=== PATIENT | female | born 1975 | race Caucasian/White ===

== ENCOUNTER 2019-03-31 05:09 | Inpatient (IN) | payer BC ==
[~2019-03-31] VITALS: Ht 170.2 cm; Wt 80.5 kg
[2019-03-31] MEDS ORDERED: OXYTOCIN 30U/ 0.9% NaCL 500ML 500 ML IV ONE (05:15)
[2019-03-31] MEDS ORDERED: OXYTOCIN 30U/ 0.9% NaCL 500ML 500 ML IV PRN (05:15)
[2019-03-31] MEDS ORDERED: FENTANYL PF 100 MCG/2ML IVPush PRN (05:30)
[2019-03-31] MEDS ORDERED: ONDANSETRON 2MG/ML, 2ML IVPush PRN (05:30)
[2019-03-31] MEDS ORDERED: SODIUM CHLORIDE FLUSH 10ML SYR IVF PRN (05:30)
[2019-03-31] MEDS ORDERED: CALCIUM CARBONATE 500 MG TAB.CHEW PO PRN (05:30)
[2019-03-31] MEDS ORDERED: NEWBORN KIT ONE (05:35)
[2019-03-31] MEDS ORDERED: ASPI-496 PO (05:37)
[2019-03-31] MEDS ORDERED: PREN-3 PO (05:37)
[2019-03-31] MEDS ORDERED: DOCO100C PO (05:38)
[2019-03-31] MEDS ORDERED: CA C1TAB60 PO (05:38)
[2019-03-31] MEDS ORDERED: MISOPROSTOL 25 MCG TABLET ONE ×2 (05:40→13:14)
[2019-03-31] MEDS ORDERED: OXYTOCIN 30U/ 0.9% NaCL 500ML 500 ML ONE (05:40)
[2019-03-31 05:43] VITALS: BP 110/70
[2019-03-31 05:47] LABS: BASOPHILS # (AUTO) 0.09 x10^3/uL (0-0.1); BASOPHILS % (AUTO) 1 % (0-1); EOSINOPHILS # (AUTO) 0.17 x10^3/uL (0-0.4); EOSINOPHILS % (AUTO) 2 % (1-7); LYMPHOCYTES # (AUTO) 2.88 x10^3/uL (1-3.4); LYMPHOCYTES % (AUTO) 28 % (22-44); MD NO; MEAN CORPUSCULAR HEMOGLOBIN 30.9 pg (27.0-34.8); MEAN CORPUSCULAR HGB CONC 32.8 g/dL (32.4-35.8); MEAN CORPUSCULAR VOLUME 94.4 fL (80-100); MEAN PLATELET VOLUME 9.1 fL (7.4-10.4); MONOCYTES # (AUTO) 0.81 x10^3/uL (0.2-0.8); MONOCYTES % (AUTO) 8 % (2-9); NEUTROPHILS # (AUTO) 6.18 x10^3/uL (1.8-6.8); NEUTROPHILS % (AUTO) 61 % (42-75); PLATELET COUNT 245 x10^3/uL (130-400); RED BLOOD COUNT 4.22 x10^6/uL (3.82-5.3); RED CELL DISTRIBUTION WIDTH 13.4 % (9.6-15.2)
[2019-03-31] MEDS: MISOPROSTOL 25 MCG TABLET VG PRN ×2 (06:12→13:22)
[2019-03-31] MEDS ORDERED: LIDOCAINE 1%, 20ML ONE (08:49)
[2019-03-31] MEDS ORDERED: MISOPROSTOL 200 MCG TABLET ONE (08:50)
[2019-04-01] MEDS ORDERED: OXYTOCIN 30U/ 0.9% NaCL 500ML 500 ML ONE (09:28)
[2019-04-01] MEDS ORDERED: TERBUTALINE 1 MG/ML, 1ML ONE (17:23)
[2019-04-01] MEDS: LACTATED RINGERS 1,000 ML IV SCH (17:50)
[2019-04-01] MEDS ORDERED: OXYTOCIN 30U/ 0.9% NaCL 500ML 500 ML IV SCH (23:41)
[2019-04-02] MEDS ORDERED: CALCIUM CARBONATE 500 MG TAB.CHEW PO PRN
[2019-04-02] MEDS ORDERED: FENTANYL PF 100 MCG/2ML ONE (00:28)
[2019-04-02] MEDS: FENTANYL PF 100 MCG/2ML IV PRN ×2 (00:31→03:06)
[2019-04-02] MEDS: LACTATED RINGERS 1,000 ML IV SCH ×6 (01:10→23:13)
[2019-04-02] MEDS ORDERED: LACTATED RINGERS 1,000 ML IV SCH ×2 (02:58→04:56)
[2019-04-02] MEDS ORDERED: FENTANYL/BUPIV./NS/PF 250 ML EPIDCONT SCH ×2 (02:58→04:56)
[2019-04-02] MEDS ORDERED: EPHEDRINE 50 MG/ML, 1ML IVPush PRN ×2 (03:00→05:00)
[2019-04-02] MEDS ORDERED: LACTATED RINGERS 1,000 ML IVBOLUS PRN ×2 (03:00→05:00)
[2019-04-02] MEDS ORDERED: FENTANYL PF 500 MCG, BUPIVACAINE/PF 0.5%, 30ML 62.5 ML in SODIUM CHLORIDE 0.9% 177.5 ML EPIDCONT SCH (03:30)
[2019-04-02] MEDS ORDERED: BUPIVACAINE 0.25% ONE (03:43)
[2019-04-02] MEDS ORDERED: EPHEDRINE 50 MG/ML, 1ML ONE (04:48)
[2019-04-02] MEDS ORDERED: ONDANSETRON 2MG/ML, 2ML IVPush PRN ×2 (05:00→17:00)
[2019-04-02] MEDS ORDERED: DIPHENHYDRAMINE 50 MG/ML, 1ML IVPush PRN (05:00)
[2019-04-02] MEDS ORDERED: NALOXONE 0.4 MG/ML, 1ML IVPush PRN (05:00)
[2019-04-02] MEDS ORDERED: PRENATAL VIT/IRON/FA 1 EACH TABLET PO SCH (09:00)
[2019-04-02] MEDS ORDERED: SODIUM CITRATE/CITRIC ACID 15 ML UDC ONE (11:49)
[2019-04-02] MEDS ORDERED: METOCLOPRAMIDE 5 MG/ML, 2ML ONE (11:49)
[2019-04-02] MEDS ORDERED: LIDOCAINE/MPF 2%-EPI 1:200K, 20 ML ONE (12:00)
[2019-04-02] MEDS ORDERED: METOCLOPRAMIDE 5 MG/ML, 2ML IV ONE (12:00)
[2019-04-02] MEDS ORDERED: SODIUM CITRATE/CITRIC ACID 15 ML UDC PO ONE (12:00)
[2019-04-02] MEDS ORDERED: LACTATED RINGERS 1,000 ML IVBOLUS ONE (12:30)
[2019-04-02] MEDS ORDERED: AZITHROMYCIN 500 MG in SODIUM CHLORIDE 0.9% 250 ML IV ONE (12:30)
[2019-04-02] MEDS ORDERED: morphine SULFATE/PF 0.5 MG/ML, 10ML ONE (12:45)
[2019-04-02] MEDS ORDERED: WATER-INJECTION,STERILE 10 ML IV ONE (12:51)
[2019-04-02] MEDS ORDERED: OXYTOCIN 10 UNITS/ML, 1ML ONE (12:51)
[2019-04-02] MEDS ORDERED: CEFAZOLIN 1,000 MG ONE (12:51)
[2019-04-02] MEDS ORDERED: DEXAMETHASONE 4 MG/ML, 1ML ONE (12:51)
[2019-04-02] MEDS ORDERED: ONDANSETRON 2MG/ML, 2ML ONE (12:51)
[2019-04-02] MEDS ORDERED: KETOROLAC 30 MG/1 ML ONE (13:19)
[2019-04-02] MEDS ORDERED: MEPERIDINE/PF 50 MG/ML ONE (13:19)
[2019-04-02] MEDS ORDERED: MISOPROSTOL 200 MCG TABLET PR PRN ×3 (13:30→14:00)
[2019-04-02] MEDS ORDERED: METHYLERGONOVINE 0.2 MG/ML IM PRN (13:30)
[2019-04-02] MEDS ORDERED: MORPHINE SULFATE 4 MG/ML, 1ML IVPush PRN (13:30)
[2019-04-02] MEDS ORDERED: IBUPROFEN 800 MG TABLET PO PRN (13:30)
[2019-04-02] MEDS ORDERED: CARBOPROST TROMETHAMINE 250 MCG/ML, 1ML IM PRN (13:30)
[2019-04-02] MEDS ORDERED: morphine SULFATE 10 MG/ML, 1ML IM PRN (13:30)
[2019-04-02] MEDS ORDERED: ONDANSETRON 2MG/ML, 2ML IV PRN ×2 (13:30)
[2019-04-02] MEDS ORDERED: OXYcodone IR 5MG TABLET PO PRN ×2 (13:30)
[2019-04-02] MEDS ORDERED: KETOROLAC 30 MG/1 ML IV PRN (14:00)
[2019-04-02] MEDS ORDERED: MEPERIDINE/PF 25MG/0.5ML IVPush PRN (14:00)
[2019-04-02] MEDS: OXYTOCIN 30U/ 0.9% NaCL 500ML 500 ML IV SCH ×2 (15:25→23:13)
[2019-04-02] MEDS ORDERED: METHYLERGONOVINE 0.2MG TABLET ONE (15:34)
[2019-04-02 16:15] VITALS: BP 105/63
[2019-04-02] MEDS ORDERED: OXYcodone/APAP 5/325MG TABLET PO PRN ×2 (17:00)
[2019-04-02] MEDS ORDERED: morphine SULFATE 10 MG/ML, 1ML IVPush PRN (19:00)
[2019-04-02] MEDS: KETOROLAC 30 MG/1 ML IVPush SCH (19:51)
[2019-04-02 20:10] VITALS: BP 99/63
[2019-04-02 23:59] LABS: MEAN CORPUSCULAR HEMOGLOBIN 31.6 pg (27.0-34.8); MEAN CORPUSCULAR HGB CONC 33.3 g/dL (32.4-35.8); MEAN CORPUSCULAR VOLUME 94.9 fL (80-100); PLATELET COUNT 202 x10^3/uL (130-400); RED BLOOD COUNT 3.41 x10^6/uL (3.82-5.3); RED CELL DISTRIBUTION WIDTH 13.6 % (9.6-15.2)
[2019-04-03 00:08] VITALS: BP 93/60
[2019-04-03 00:19] LABS: BASOPHILS # (AUTO) 0.04 x10^3/uL (0-0.1); BASOPHILS % (AUTO) 0 % (0-1); EOSINOPHILS # (AUTO) 0.02 x10^3/uL (0-0.4); EOSINOPHILS % (AUTO) 0 % (1-7); LYMPHOCYTES # (AUTO) 2.84 x10^3/uL (1-3.4); LYMPHOCYTES % (AUTO) 14 % (22-44); MD SCAN; MONOCYTES % (AUTO) 5 % (2-9); NEUTROPHILS # (AUTO) 16.56 x10^3/uL (1.8-6.8); NEUTROPHILS % (AUTO) 81 % (42-75)
[2019-04-03] MEDS: KETOROLAC 30 MG/1 ML IVPush SCH ×4 (04:26→22:43)
[2019-04-03 04:30] VITALS: BP 93/53
[2019-04-03] MEDS: LACTATED RINGERS 1,000 ML IV SCH ×5 (05:13→21:13)
[2019-04-03] MEDS: OXYcodone/APAP 5/325MG TABLET PO PRN (07:41)
[2019-04-03] MEDS: PRENATAL VIT/IRON/FA 1 EACH TABLET PO SCH (07:41)
[2019-04-03] MEDS: DOCUSATE 100 MG CAPSULE PO PRN ×2 (07:41→22:43)
[2019-04-03 07:56] VITALS: BP 91/51
[2019-04-03] MEDS: OXYTOCIN 30U/ 0.9% NaCL 500ML 500 ML IV SCH ×2 (09:13→19:13)
[2019-04-03 20:00] VITALS: BP 111/69
[2019-04-03] MEDS ORDERED: KETOROLAC 30 MG/1 ML ONE (22:34)
[2019-04-04] MEDS: KETOROLAC 30 MG/1 ML IVPush SCH ×4 (05:04→22:30)
[2019-04-04] MEDS: LACTATED RINGERS 1,000 ML IV SCH ×5 (05:13→21:13)
[2019-04-04] MEDS: OXYTOCIN 30U/ 0.9% NaCL 500ML 500 ML IV SCH ×2 (05:13→15:13)
[2019-04-04] MEDS: PRENATAL VIT/IRON/FA 1 EACH TABLET PO SCH (09:00)
[2019-04-04 10:14] VITALS: BP 115/69
[2019-04-04] MEDS: DOCUSATE 100 MG CAPSULE PO PRN (17:18)
[2019-04-04] MEDS: IBUPROFEN 600 MG TABLET PO PRN ×2 (17:18→23:18)
[2019-04-04 19:38] VITALS: BP 123/74
[2019-04-05] MEDS: OXYTOCIN 30U/ 0.9% NaCL 500ML 500 ML IV SCH ×2 (01:13→11:13)
[2019-04-05] MEDS: LACTATED RINGERS 1,000 ML IV SCH ×3 (01:13→11:13)
[2019-04-05] MEDS: KETOROLAC 30 MG/1 ML IVPush SCH ×2 (04:30→10:30)
[2019-04-05] MEDS: IBUPROFEN 600 MG TABLET PO PRN ×2 (05:35→11:42)
[2019-04-05 08:30] VITALS: BP 112/71
[2019-04-05] MEDS: PRENATAL VIT/IRON/FA 1 EACH TABLET PO SCH (09:00)
[2019-04-05] MEDS ORDERED: IBUP-1222 PO (09:24)
[2019-04-05] MEDS ORDERED: OXYC-302 PO (09:25)
[2019-04-05 09:45] LABS: BASOPHILS # (AUTO) 0.05 x10^3/uL (0-0.1); BASOPHILS % (AUTO) 1 % (0-1); EOSINOPHILS # (AUTO) 0.17 x10^3/uL (0-0.4); EOSINOPHILS % (AUTO) 2 % (1-7); LYMPHOCYTES # (AUTO) 2.41 x10^3/uL (1-3.4); LYMPHOCYTES % (AUTO) 24 % (22-44); MD NO; MEAN CORPUSCULAR HEMOGLOBIN 30.9 pg (27.0-34.8); MEAN CORPUSCULAR HGB CONC 32.8 g/dL (32.4-35.8); MEAN CORPUSCULAR VOLUME 94.3 fL (80-100); MEAN PLATELET VOLUME 8.1 fL (7.4-10.4); MONOCYTES # (AUTO) 0.56 x10^3/uL (0.2-0.8); MONOCYTES % (AUTO) 6 % (2-9); NEUTROPHILS # (AUTO) 6.94 x10^3/uL (1.8-6.8); NEUTROPHILS % (AUTO) 69 % (42-75); PLATELET COUNT 243 x10^3/uL (130-400); RED BLOOD COUNT 3.45 x10^6/uL (3.82-5.3); RED CELL DISTRIBUTION WIDTH 13.8 % (9.6-15.2)
[2019-04-05] MEDS: DOCUSATE 100 MG CAPSULE PO PRN (10:23)
[2019-04-05] MEDS: OXYcodone/APAP 5/325MG TABLET PO PRN (10:23)
== END 2019-04-05 12:15 | disposition home or self-care (01) | DRG 788 ==
LOC: LDIP 05:09 → 2NW 04-02 16:00
PROVIDERS: ADMIT Obstetrics & Gynecology; ATTEND Obstetrics & Gynecology
PROC: 10D00Z1 Extraction of Products of Conception, Low, Open Approach (ICD-10-PCS; principal; 2019-04-02)
DX: O62.1 Secondary uterine inertia (principal); O99.284 Endocrine, nutritional and metabolic diseases complicating childbirth; O75.81 Maternal exhaustion complicating labor and delivery; E05.00 Thyrotoxicosis with diffuse goiter without thyrotoxic crisis or storm; Z37.0 Single live birth; Z3A.39 39 weeks gestation of pregnancy; Z80.3 Family history of malignant neoplasm of breast; Z82.49 Family history of ischemic heart disease and other diseases of the circulatory system; Z88.8 Allergy status to other drugs, medicaments and biological substances; Z91.040 Latex allergy status
CPT/HCPCS: 36415; 85025; 86850; 86900; G0378; J0690; J1100; J1885; J2175; J2274; J2405; J3010; J3490; J2210; J2590; J7120